=== PATIENT | male | born 1945 | race Hispanic/Latino ===

== ENCOUNTER 2025-06-03 13:36 | Emergency (ER) | payer SELFPAY ==
[2025-06-03] MEDS ORDERED: Acetaminophen 500 MG TAB ONE (14:08)
== END 2025-06-03 15:21 | disposition home or self-care (01) ==
LOC: MADERS 13:36
DX: R51.9 Headache, unspecified (principal); I10 Essential (primary) hypertension; E11.9 Type 2 diabetes mellitus without complications; Z86.59 Personal history of other mental and behavioral disorders; V49.50XA Passenger injured in collision with unspecified motor vehicles in traffic accident, initial encounter
CPT/HCPCS: 70450; 72125